=== PATIENT | female | born 1995 | race American Indian/Alaskan Native ===

== ENCOUNTER 2020-11-16 16:12 | Outpatient (CLI) | payer MEDICAID ==
[2020-11-16 16:54] VITALS: BP 115/61
[2020-11-16] MEDS ORDERED: LACTATED RINGERS 500 ML IV ONE (16:55)
[2020-11-16 17:13] LABS: Bacteria,Urine 2+ /HPF (Negative); Bilirubin,Urine NEG (Negative); Blood,Urine NEG (Negative); Color,Urine Yellow (Yellow); Mucus,Urine 2+ /HPF; Protein,Urine <15 mg/dL mg/dL (Negative); White Blood Cell Casts,Urine 9 /LPF
[2020-11-16 17:14] LABS: WBC,Urine > 182.0 /HPF (0.0-6.0)
[2020-11-16] MEDS ORDERED: ceFAZolin/Water 2 GM/20 ML 2 GM/20 ML SYRINGE IV ONE ×2 (17:49→18:15)
[2020-11-16] MEDS ORDERED: LACTATED RINGERS 1,000 ML IV ONE ×2 (18:55→19:30)
== END 2020-11-16 19:55 | disposition home or self-care (01) ==
LOC: TRG 16:12 → APU 16:14 → TRG 19:55
PROVIDERS: ATTEND Obstetrics & Gynecology
DX: O99.513 Diseases of the respiratory system complicating pregnancy, third trimester (principal); J45.909 Unspecified asthma, uncomplicated; O26.893 Other specified pregnancy related conditions, third trimester; M54.5 Low back pain; Z3A.30 30 weeks gestation of pregnancy; Z87.891 Personal history of nicotine dependence
CPT/HCPCS: 59025; 81001; 96361; 96365; 96366; J0690; J7120; 96360

== ENCOUNTER 2021-01-16 23:58 | Outpatient (CLI) | payer MEDICAID ==
[2021-01-17 00:42] VITALS: BP 118/55
--- NOTE | 2021-01-17 06:08 | Ultrasound Report ---
ULTRASOUND OBSTETRIC LIMITED ULTRASOUND BIOPHYSICAL PROFILE INDICATION / CLINICAL INFORMATION: ZHEN, EFW. Clinical Gestational Age (GA): 39.2 weeks.days COMPARISON: None available. FINDINGS: BREATHING MOVEMENT = 2 GROSS BODY MOVEMENT = 2 TONE = 2 QUALITATIVE AMNIOTIC FLUID VOLUME = 2 TOTAL BIOPHYSICAL SCORE = 8/8 HEART RATE (beats per minute): 126 AMNIOTIC FLUID INDEX (cm) = 12.9 (normal = 7-24 cm) PRESENTATION: Cephalic. ADDITIONAL FINDINGS: The estimated sonographic gestational age is 36 weeks 3 days with an EDC of 01/19 07/08. The estimated weight is 3022 +/- 447 g IMPRESSION: 1. Biophysical Score = 8/8 2. Normal ZHEN of 12.9 cm Signer Name: Nilesh Caro MD Signed: 01/17/2021 6:03 AM Workstation Name: [id number]
== END 2021-01-17 05:15 | disposition home or self-care (01) ==
LOC: TRG 23:58 → APU 23:59 → TRG 01-17 05:15
PROVIDERS: ATTEND Obstetrics & Gynecology
DX: Z34.93 Encounter for supervision of normal pregnancy, unspecified, third trimester (principal); Z3A.39 39 weeks gestation of pregnancy
CPT/HCPCS: 59025; 76816; 76819

== ENCOUNTER 2021-01-18 15:02 | Outpatient (CLI) | payer MEDICAID ==
[2021-01-18 15:37] VITALS: BP 125/60
== END 2021-01-18 17:00 | disposition home or self-care (01) ==
LOC: TRG 15:02 → APU 15:05 → TRG 17:00
PROVIDERS: ATTEND Obstetrics & Gynecology
DX: Z34.93 Encounter for supervision of normal pregnancy, unspecified, third trimester (principal); Z3A.39 39 weeks gestation of pregnancy
CPT/HCPCS: 59025